=== PATIENT | female | born 1995 | race Caucasian/White ===

== ENCOUNTER 2018-09-03 14:33 | Emergency (ER) | payer BC ==
--- NOTE | 2018-09-03 16:08 | ED ---
- HPI Summary HPI Summary: Patient is a 23-year-old female who presents to the emergency department for vaginal bleeding 4 days. Patient states she is around roughly 4-6 weeks . She states she took a home tests over the weekend. Patient states bleeding has become heavier each day with cramping. . Symptoms are moderate in severity. No current modifying factors. Pt. notes changing about 4 pads yesterday. - History of Current Complaint Chief Complaint: EDVaginalBleeding Stated Complaint: 4-7 WKS /BLEEDING Time Seen by Provider: 09/03/18 15:43 Hx Obtained From: Patient Pain Intensity: 5 - Allergies/Home Medications Allergies/Adverse Reactions: Allergies Allergy/AdvReac Type Severity Reaction Status Date / Time amoxicillin [From Augmentin] Allergy Unknown Verified 09/03/18 14:40 Reaction Details clavulanic acid Allergy Unknown Verified 09/03/18 14:40 [From Augmentin] Reaction Details Home Medications: Home Medications Venlafaxine EXT RELEASE CAP* [Effexor Xr CAP*] 75 mg PO DAILY 09/03/18 [History Confirmed 09/03/18] PMH/Surg Hx/FS Hx/Imm Hx Previously Healthy: Yes Cardiovascular History: Denies: Hx Pacemaker/ICD Sensory History: Denies: Hx Hearing Aid Psychiatric History: Denies: Hx Panic Disorder, Hx of Violent Episodes Against Others Infectious Disease History: No Infectious Disease History: Denies: Traveled Outside the [place] in Last 30 Days - Family History Known Family History: Positive: Non-Contributory - Social History Occupation: Student Lives: With Family Alcohol Use: None Substance Use Type: Reports: None Smoking Status (MU): Never Smoked Tobacco Review of Systems Positive: Abdominal Pain Positive: other - vaginal bleeding All Other Systems Reviewed And Are Negative: Yes Physical Exam - Physical Exam Triage Information Reviewed: Yes Vital Signs Reviewed: Yes Appearance: Positive: Well-Appearing - Pt. lying in bed in NAD. Friend present. Skin: Positive: Warm, Dry Head/Face: Positive: Normal Head/Face Inspection Eyes: Positive: Normal, EOMI Neck: Positive: Supple Cardiovascular: Positive: Normal, RRR Abdomen Description: Positive: Nontender, Soft Neurological: Positive: Normal, CN Intact II-III Psychiatric: Positive: Affect/Mood Appropriate Diagnostics - Vital Signs Vital Signs Temp Pulse Resp BP Pulse Ox 09/03/18 14:36 99.1 F 76 16 131/82 100 - Laboratory Result Diagrams: 09/03/18 16:00 Lab Statement: Any lab studies that have been ordered have been reviewed, and results considered in the medical decision making process. Course/Dx - Course Course Of Treatment: Pt. presenting for vaginal bleeding in early . She has a benign abd. exam without pain. Stable VS. CBC shows stable H and H. Beta HCG only 944. Blood type O+. U/S shows gestational sack without poles , could represent early , miscarriage or ectopic, reading per radiology. Suspect miscarriage vs early . Pt has no pain on exam to suggest ectopic at this time. Results discussed with pt. Advised to call oncall OB tomorrow to schedule a close apt. and for repeat hcg in 48 hours. To return to ER for increased bleeding, abd. pain, fever, or if concerned. Pt. understands and agrees with plan. - Differential Diagnosis/HQI/PQRI: Incomplete , Missed , Spontaneous , Threatened , Ectopic , Intrauterine - Diagnoses Provider Diagnoses: Threatened Discharge - Sign-Out/Discharge Documenting (check all that apply): Patient Departure - Discharge Plan Condition: Good Disposition: HOME Patient Education Materials: Threatened Miscarriage (ED) Referrals: Vick Link MD [Medical Doctor] - Choco Saba MD [Primary Care Provider] - Additional Instructions: Call Dr. Link's office tomorrow to schedule a close follow up appointment-- you will need to have level rechecked in 48 hours Return to ER for increased pain, bleeding, lightheaded, dizzy. - Billing Disposition and Condition Condition: GOOD Disposition: Home
[2018-09-03 16:16] LABS: ABS Basophils 0 10^3/ul (0-0.2); ABS Eosinophils 0 10^3/ul (0-0.6); ABS Lymphocytes 1.5 10^3/ul (1.0-4.8); ABS Monocytes 0.6 10^3/ul (0-0.8); ABS Neutrophils 3.8 10^3/ul (1.5-7.7); ABS Nucleated RBC 0 10^3/ul; Eosinophil % 0.1 %; Hematocrit 39 % (35-47); Hemoglobin 13.2 g/dl (12.0-16.0); Lymphocyte % 25.3 %; Mean Corpuscular HGB Conc 34 g/dl (31-36); Mean Corpuscular Hemoglobin 30 pg (27-31); Mean Corpuscular Volume 89 fL (80-97); Mean Platelet Volume 8.4 fL (7.4-10.4); Nucleated Red Blood Cells % 0; Platelet Count 256 10^3/ul (150-450); Red Cell Distribution Width 16 % (10.5-15); White Blood Count 5.8 10^3/ul (3.5-10.8)
[2018-09-03 18:37] VITALS: BP 101/58
== END 2018-09-03 18:35 | disposition home or self-care (01) ==
LOC: ED 14:33
DX: O20.0 Threatened abortion (principal); Z3A.00 Weeks of gestation of pregnancy not specified
CPT/HCPCS: 36415; 76817; 84702; 85025; 86900; 86901; 99282

== ENCOUNTER 2019-09-16 20:28 | Inpatient (IN) | payer BC, OTHER ==
[2019-09-16] MEDS ORDERED: hydrOXYzine IM* 50 MG/ML VIAL IM ONE (23:05)
[2019-09-16] MEDS ORDERED: Venlafaxine EXT RELEASE CAP* 75 MG PO SCH (23:45)
[2019-09-16] MEDS: ValACYclovir (*) 500 MG TAB PO SCH (23:46)
[2019-09-17] MEDS ORDERED: Lactated Ringers 1000 ML Bag* 1,000 ML IV ONE ×2 (03:25→05:08)
[2019-09-17] MEDS ORDERED: Buffered Lidocaine 1% SYRIN* 1 ML/SYRINGE INTRADERM ONE (03:25)
--- NOTE | 2019-09-17 03:25 | HP ---
General Information - Reason for Visit 24yo, , IUP@40+2 here in active labor - General Information Maternal Age: 24 Grav: 2 Para: 0 SAB: 1 IEA: 0 Estimated Due Date: 09/15/19 Determined By: LMP Gestational Age in Weeks/Days: 40+2 Maternal Blood Type and Rh: O Positive - Results this Serology/RPR Result: Non-Reactive Rubella Result: Non-Immune HBsAg Result: Negative HIV Result: Negative GBS Culture Result: Negative Past Medical History Past Medical History Comment: Migraines Depression (on effexor) HSVII (FOB with type I diabetes) Past Surgical History Comment: [place] tooth extraction Family History Comment: father: DMII PGM: colon cancer MGM: heart disease - Antepartal Records Antepartal Records: Reviewed, Complicated by: - HSVII, rubella NI, + THC, hx of depression Review of Systems Constitutional: Uncomfortable CV Complaint: No Respiratory: Shortness of Breath: No Gastrointestinal: No Nausea/Vomiting, Normal Bowel Movement Genitourinary: No Dysuria, No Leaking Fluid Musculoskeletal: Contractions Neurological: No Headache, No Visual Changes Movement: Normal Exam Allergies/Adverse Reactions: Allergies amoxicillin [From Augmentin] Allergy (Verified 09/16/19 21:33) Unknown Reaction Details clavulanic acid [From Augmentin] Allergy (Verified 09/16/19 21:33) Unknown Reaction Details HR 78, RR 20, BP 123/76, O2 98% - Measurements Height: 5 ft 5 in Weight: 151 lb Weight in lbs: 151.778356 Body Mass Index (BMI): 25.1 Pre- Weight: 116 lb Weight Gained This : 35 lbs and 0 ozs - Exam Breast: Breast Exam Deferred CVA: No CVA Tenderness Extremities: No Edema Heart: Normal Rhythm/Heart Sounds HEENT: No Significant Findings Lungs: Clear Bilaterally Rectal: Rectal Exam Deferred Reflexes: DTR 2+ Thyroid: No Thyromegaly - Abdominal Exam Abdomen Exam: Non-Tender - Ultrasound/Biophysical Profile Ultrasound Status: Not Done Targeted Exam Findings Estimated Weight: 7.5lbs Cervical Exam: 3cm, 4cm Effacement: 100% Station: 0 Presenting Part: Vertex Membrane Status: Intact Bleeding/Discharge: Bloody Show EFM Findings - External Monitor Findings Baseline Heart Rate: 115 External Monitor Findings: Accelerations Present, No Pattern of Variable or Late Decelerations, Variability Moderate, Baseline Stable External Monitor Findings Comment: No evidence of metabolic acidemia Contractions: Regular - 3-4, Moderate, 45-90 Seconds Assessment/Plan - Assessment 24yo, IUP@40+4 here in active labor GBS negative, Rubella NI 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
[2019-09-17 03:51] LABS: ABS Basophils 0.1 10^3/ul (0-0.2); ABS Eosinophils 0.1 10^3/ul (0-0.6); ABS Lymphocytes 1.3 10^3/ul (1.0-4.8); ABS Monocytes 0.8 10^3/ul (0-0.8); ABS Neutrophils 7.9 10^3/ul (1.5-7.7); Eosinophil % 1.3 %; Hematocrit 40 % (35-47); Hemoglobin 13.7 g/dL (12.0-16.0); Lymphocyte % 12.8 %; Mean Corpuscular HGB Conc 34 g/dL (31-36); Mean Corpuscular Hemoglobin 32 pg (27-31); Mean Corpuscular Volume 93 fL (80-97); Mean Platelet Volume 9.6 fL (7.4-10.4); Platelet Count 252 10^3/uL (150-450); Red Blood Count 4.34 10^6 /uL (3.70-4.87); Red Cell Distribution Width 13 % (10-15); White Blood Count 10.2 10^3/uL (3.5-10.8)
[2019-09-17] MEDS ORDERED: Lactated Ringers 1000 ML Bag* 1,000 ML IV SCH ×3 (04:00→11:00)
[2019-09-17] MEDS ORDERED: OBEPIDURAL* 250 ML EPIDURAL ONE (04:04)
[2019-09-17 04:06] LABS: Urine Benzodiazepine Screen None Detected (None Detect); Urine Opiates Screen None Detected (None Detect)
[2019-09-17] MEDS ORDERED: Phenylephrine 40 MCG/ML SYRINGE IV PUSH PRN (05:08)
[2019-09-17] MEDS ORDERED: Famotidine TAB* 20 MG PO PRN (05:08)
[2019-09-17] MEDS ORDERED: EPHEDrine (Pressors)* 50 MG/ML VIAL IV PUSH PRN ×2 (05:08)
[2019-09-17] MEDS ORDERED: Sodium Citrate/Citric Acid* 15 ML UDC PO PRN (05:08)
[2019-09-17] MEDS ORDERED: OBEPIDURAL* 250 ML EPIDURAL SCH (06:00)
[2019-09-17] MEDS: Phenylephrine 40 MCG/ML SYRINGE IV PUSH PRN ×2 (07:43→08:10)
--- NOTE | 2019-09-17 08:03 | PN ---
Progress Note - Progress Note Date of Service: 09/17/19 Note: S: Pt sleeping in bed. Comfortable with epidural. O: BP 115/66, after phenylephrine x2 FHR: following AROM (clear fluid) prolonged decel with emmy low 60s - FSE placed. FHR returned to baseline. Deep variables with contractions. Otherwise moderate variability, +accels Contractions: spaced, q8 minutes prior to AROM VE: 6/90/0, +bloody show CEI infusing A: Episode of low BP, otherwise VSS Active labor Low suspicion for metabolic acidemia following AROM, contractions more regular P: Close monitoring of status Consider low-dose Pitocin, with reassuring FHR Report given to Jeannine Mike CNM who will assume care at 0800.
[2019-09-17] MEDS ORDERED: Terbutaline INJ* 1 MG/ML VIAL ONE (08:45)
[2019-09-17] MEDS ORDERED: ceFOXitin 2 GM IVPREMIX* 2 GM/50 ML BAG ONE (09:04)
[2019-09-17] MEDS ORDERED: KETAMINE HCL* 50 MG/ML 10 ML VIAL ONE (09:04)
[2019-09-17] MEDS ORDERED: OXYTOCIN* 10 UNITS/ML 1 ML VIAL ONE (09:25)
[2019-09-17] MEDS ORDERED: Ketorolac INJ* 30 MG/ML 1 ML VIAL ONE (09:25)
[2019-09-17] MEDS ORDERED: Lidocaine 2% PF* 10 ML AMP ONE (09:25)
[2019-09-17] MEDS ORDERED: Phenylephrine 40 MCG/ML SYRINGE ONE (09:25)
[2019-09-17] MEDS ORDERED: Ondansetron INJ* 2 MG/ML VIAL ONE (09:25)
[2019-09-17] MEDS ORDERED: Morphine PF AMP (0.5MG/ML)* 5 MG/10 ML AMP ONE (09:29)
[2019-09-17] MEDS ORDERED: oxyCODONE TAB* 5 MG TAB PO PRN (09:38)
[2019-09-17] MEDS ORDERED: Naloxone* 0.4 MG/ML 1 ML VIAL IV PRN ×2 (09:38→09:41)
[2019-09-17] MEDS ORDERED: DiMENhydriNATE IV* 50 MG/ML VIAL IV PUSH PRN (09:38)
[2019-09-17] MEDS ORDERED: Acetaminophen IV 1GM/100ML * 1,000 MG/100 ML VIAL IVPB ONE (09:38)
[2019-09-17] MEDS ORDERED: HYDROmorphone INJ1* 1 MG/ML SYRINGE IV PRN (09:38)
[2019-09-17] MEDS ORDERED: Nalbuphine* 10 MG/ML 1 ML VIAL IV PRN (09:41)
[2019-09-17] MEDS ORDERED: oxyCODONE/Acetamin 5/325 MG* TAB PO PRN (09:41)
[2019-09-17] MEDS ORDERED: Ondansetron INJ* 2 MG/ML VIAL IV PRN (09:41)
[2019-09-17] MEDS ORDERED: Dibucaine 1% 28.35 GM TUBE PR PRN (10:07)
[2019-09-17] MEDS ORDERED: Zolpidem TAB* 5 MG PO PRN (10:07)
[2019-09-17] MEDS ORDERED: Witch Hazel PAD* JAR TOPICAL PRN (10:07)
[2019-09-17] MEDS ORDERED: Glycerin ADULT SUPP PR PRN (10:07)
[2019-09-17] MEDS ORDERED: HYDROmorphone INJ* 0.5 MG/0.5 ML SYRINGE IV PRN (11:00)
[2019-09-17] MEDS ORDERED: Oxytocin in LR* 20 UNITS/1,000 ML BAG IVPB SCH (11:00)
--- NOTE | 2019-09-17 11:24 | OP ---
AMENDED REPORT NOW INCLUDES DATE OF OPERATION DATE OF OPERATION: 09/17/2019 DATE OF : 89 SURGEON: Dr. Brizuela. TEMPLATE FITTER: Berna Cuevas CNM PRE-OP DIAGNOSIS: Category-2 tracing, remote from delivery. POST-OP DIAGNOSIS: Category-2 tracing, remote from delivery. OPERATIVE PROCEDURE: Low transverse section. COMPLICATIONS: None. INDICATIONS: This is a 25-year-old 2, para 0 who came in spontaneous labor and progressed to approximately 6 to 7 cm and then after artificial rupture of membranes began having very deep variable decels with the head low in the pelvis. These were persistent despite measures of IV fluids and left lateral recumbent position and oxygen. The risks, benefits, alternatives, indications of were discussed with the patient. It was done on a semi- stat status using the epidural. FINDINGS: It was a viable male. The Apgars were 9 and 9. Weight was 7 pounds 5 ounces. Normal appearing uterus, fallopian tubes, and ovaries. DESCRIPTION OF PROCEDURE: The patient identified, procedure identified as a low transverse section; placed in the operating room; prepped and draped in usual fashion in the left lateral recumbent position under epidural anesthesia. Pfannenstiel incision was made in the abdomen, carried down through fat, fascia, and peritoneum. Transverse incision made in the low uterine segment, extended laterally using blunt dissection. The above infant was delivered through the incision. A nuchal cord and an abdominal cord were unwrapped. Cord was doubly clamped and cut. The was handed to the awaiting condenser operator. Cord blood and cord pH segments were obtained. Placenta delivered manually. The uterus was wiped out with a wet lap sponge. The uterine incision was then closed using 0 Polysorb in a running a fashion. A second layer was used to imbricate the first layer. Hemostasis was established and the uterus was placed back into the abdominal cavity. Gutters were wiped out with wet lap sponge. Good hemostasis was again verified and the peritoneum was closed using 3-0 Vicryl in a running fashion. Good hemostasis achieved in the subrectus layers. Fascia was closed using 0 Polysorb in a running fashion. Good hemostasis achieved in subcu. Copious irrigation was utilized and suctioned out. The skin was closed with 4-0 Monocryl in a subcuticular fashion. All sponge and instrument counts were correct, and the patient returned to the recovery room in stable condition. [id number]/[facility] #: [id number] [facility]
[2019-09-17] MEDS ORDERED: fentaNYL* 50 MCG/ML 2 ML VIAL (100 MCG VIAL) ONE (15:14)
[2019-09-17] MEDS ORDERED: Propofol* 10 MG/ML 20 ML BTL ONE (15:21)
[2019-09-17] MEDS ORDERED: Lidocaine 2% PF * 5 ML VIAL ONE (15:30)
[2019-09-17] MEDS: Prenatal Vitamin TAB PO SCH (16:08)
[2019-09-17] MEDS: Simethicone TAB* 80 MG TAB.CHEW PO SCH ×3 (16:12→19:59)
[2019-09-17] MEDS: Docusate CAP* 100 MG PO SCH ×2 (16:12→19:59)
[2019-09-17] MEDS: Ketorolac INJ* 30 MG/ML 1 ML VIAL IV SCH ×2 (16:12→22:17)
[2019-09-17] MEDS ORDERED: HYDROcodone/ACETAMIN 5-325 MG* 1 TAB PO PRN (16:34)
[2019-09-17] MEDS: HYDROcodone/ACETAMIN 5-325 MG* 1 TAB PO PRN (19:59)
[2019-09-17] MEDS: Venlafaxine EXT RELEASE CAP* 75 MG PO SCH (23:03)
[2019-09-18] MEDS: HYDROcodone/ACETAMIN 5-325 MG* 1 TAB PO PRN (00:30)
[2019-09-18] MEDS ORDERED: RELPAX 40 MG PO ONE (00:38)
[2019-09-18] MEDS ORDERED: SUMAtriptan TAB* 50 MG PO ONE (00:57)
[2019-09-18] MEDS ORDERED: oxyCODONE/Acetamin 5/325 MG* TAB PO PRN (01:41)
[2019-09-18] MEDS: Ketorolac INJ* 30 MG/ML 1 ML VIAL IV SCH (04:35)
[2019-09-18 05:57] LABS: ABS Eosinophils 0.1 10^3/ul (0-0.6); ABS Lymphocytes 1.3 10^3/ul (1.0-4.8); ABS Monocytes 0.8 10^3/ul (0-0.8); ABS Neutrophils 10.7 10^3/ul (1.5-7.7); Eosinophil % 0.7 %; Hematocrit 34 % (35-47); Hemoglobin 11.4 g/dL (12.0-16.0); Lymphocyte % 10.2 %; Mean Corpuscular HGB Conc 34 g/dL (31-36); Mean Corpuscular Hemoglobin 33 pg (27-31); Mean Corpuscular Volume 95 fL (80-97); Mean Platelet Volume 9.2 fL (7.4-10.4); Platelet Count 197 10^3/uL (150-450); Red Blood Count 3.52 10^6 /uL (3.70-4.87); Red Cell Distribution Width 14 % (10-15); White Blood Count 12.9 10^3/uL (3.5-10.8)
[2019-09-18] MEDS: Simethicone TAB* 80 MG TAB.CHEW PO SCH ×4 (08:40→21:08)
[2019-09-18] MEDS: Prenatal Vitamin TAB PO SCH ×2 (08:40→09:00)
[2019-09-18] MEDS: ValACYclovir (*) 500 MG TAB PO SCH (08:40)
[2019-09-18] MEDS: Docusate CAP* 100 MG PO SCH ×3 (08:40→21:08)
[2019-09-18] MEDS ORDERED: Ferrous Gluconate TAB* 324 MG TAB PO SCH (09:00)
[2019-09-18] MEDS ORDERED: Measles, Mumps,Rubella VACC* 0.5 ML/VIAL SUBCUT ONE (09:00)
[2019-09-18] MEDS: Ibuprofen TAB* 600 MG PO PRN ×2 (12:31→19:05)
[2019-09-18] MEDS: oxyCODONE/Acetamin 5/325 MG* TAB PO PRN ×3 (14:11→22:44)
[2019-09-18] MEDS: Venlafaxine EXT RELEASE CAP* 75 MG PO SCH (21:08)
[2019-09-19] MEDS: Ibuprofen TAB* 600 MG PO PRN ×3 (03:33→16:52)
[2019-09-19] MEDS: Simethicone TAB* 80 MG TAB.CHEW PO SCH ×3 (08:47→19:50)
[2019-09-19] MEDS: Prenatal Vitamin TAB PO SCH (08:47)
[2019-09-19] MEDS: Docusate CAP* 100 MG PO SCH ×3 (08:47→19:50)
[2019-09-19] MEDS: oxyCODONE/Acetamin 5/325 MG* TAB PO PRN ×2 (13:41→19:50)
[2019-09-19] MEDS: Venlafaxine EXT RELEASE CAP* 75 MG PO SCH (20:14)
[2019-09-19 20:33] VITALS: BP 120/69
[2019-09-20] MEDS: Ibuprofen TAB* 600 MG PO PRN ×3 (00:44→12:06)
[2019-09-20] MEDS: oxyCODONE/Acetamin 5/325 MG* TAB PO PRN ×2 (04:35→10:12)
[2019-09-20] MEDS: Prenatal Vitamin TAB PO SCH (10:13)
[2019-09-20] MEDS: Docusate CAP* 100 MG PO SCH (10:13)
[2019-09-20] MEDS: Simethicone TAB* 80 MG TAB.CHEW PO SCH ×3 (10:13→12:56)
== END 2019-09-20 13:45 | disposition home or self-care (01) | DRG 787 ==
LOC: MCHOBOUT 20:28 → MCHOB 09-17 03:28
PROVIDERS: ADMIT Advanced Practice Midwife; ATTEND Obstetrics & Gynecology
PROC: 4A1HXCZ Monitoring of Products of Conception, Cardiac Rate, External Approach (ICD-10-PCS; 2019-09-17)
PROC: 10907ZC Drainage of Amniotic Fluid, Therapeutic from Products of Conception, Via Natural or Artificial Opening (ICD-10-PCS; 2019-09-17)
PROC: 10H073Z Insertion of Monitoring Electrode into Products of Conception, Via Natural or Artificial Opening (ICD-10-PCS; 2019-09-17)
PROC: 10D00Z1 Extraction of Products of Conception, Low, Open Approach (ICD-10-PCS; principal; 2019-09-17 08:56)
DX: O48.0 Post-term pregnancy (principal); O99.354 Diseases of the nervous system complicating childbirth; O98.32 Other infections with a predominantly sexual mode of transmission complicating childbirth; O76 Abnormality in fetal heart rate and rhythm complicating labor and delivery; O69.81X0 Labor and delivery complicated by cord around neck, without compression, not applicable or unspecified; O69.82X0 Labor and delivery complicated by other cord entanglement, without compression, not applicable or unspecified; O99.344 Other mental disorders complicating childbirth; F32.9 Major depressive disorder, single episode, unspecified; G43.909 Migraine, unspecified, not intractable, without status migrainosus; A60.04 Herpesviral vulvovaginitis; Z79.899 Other long term (current) drug therapy; Z3A.40 40 weeks gestation of pregnancy; Z37.0 Single live birth; Z88.0 Allergy status to penicillin; Z88.1 Allergy status to other antibiotic agents
CPT/HCPCS: 36415; 80307; 85025; 86850; 86900; 86901; 88307; 90707; A9270-GY; G0480; J0694; J1885; J2001; J2405; J2590; J2704; J3010; J3105; J3410